=== PATIENT | male | born 1950 | race Caucasian/White ===

== ENCOUNTER 2017-11-07 08:13 | Outpatient (CLI) | payer OTHER ==
[~2017-11-07 08:13] MED LIST: BENADRYL25 MG PO; HYDROCORTISONE28 G5 TP; METOPROLOL SUCC50 MG; XARELTO20 MG; ZYRTEC10 M3 PO
== END 2017-11-07 09:00 | disposition home or self-care (01) ==
LOC: NUCLEAR 08:13
DX: I50.89 Other heart failure (principal); I34.0 Nonrheumatic mitral (valve) insufficiency

== ENCOUNTER 2017-12-24 08:59 | Outpatient (CLI) | payer OTHER | END 2017-12-24 09:09 | disposition home or self-care (01) | LOC: NUCLEAR 08:59 | DX: I50.89 Other heart failure (principal) | CPT/HCPCS: 78472; 78496; A9560 ==

== ENCOUNTER 2019-11-26 15:14 | Outpatient (CLI) | payer OTHER | END 2019-11-26 17:50 | disposition home or self-care (01) | LOC: OFIC 805 15:14 | PROVIDERS: ATTEND Otolaryngology Otology & Neurotology | DX: H60.543 Acute eczematoid otitis externa, bilateral (principal); L30.8 Other specified dermatitis; H90.3 Sensorineural hearing loss, bilateral ==

== ENCOUNTER 2019-12-27 11:42 | Outpatient (CLI) | payer OTHER | END 2019-12-27 13:00 | disposition home or self-care (01) | LOC: OFIC 805 11:42 | PROVIDERS: ATTEND Otolaryngology Otology & Neurotology | DX: L30.8 Other specified dermatitis (principal); R05 Cough; H60.543 Acute eczematoid otitis externa, bilateral; H90.42 Sensorineural hearing loss, unilateral, left ear, with unrestricted hearing on the contralateral side ==

== ENCOUNTER 2020-01-18 08:22 | Outpatient (CLI) | payer OTHER | END 2020-01-18 08:28 | disposition home or self-care (01) | LOC: RX STUDY 08:22 | PROVIDERS: ATTEND Otolaryngology Otology & Neurotology | DX: Z00.00 Encounter for general adult medical examination without abnormal findings (principal); R05 Cough ==

== ENCOUNTER 2020-09-21 19:32 | Emergency (ER) | payer OTHER ==
[~2020-09-21] VITALS: Ht 177.8 cm; Wt 74.8 kg
[2020-09-21] MEDS ORDERED: XARELTO15 MG PO (19:46)
== END 2020-09-21 23:45 | disposition home or self-care (01) ==
LOC: ER 19:32
DX: R06.02 Shortness of breath (principal); L50.0 Allergic urticaria; T39.395A Adverse effect of other nonsteroidal anti-inflammatory drugs [NSAID], initial encounter